=== PATIENT | female | born 1950 | race Caucasian/White ===

== ENCOUNTER 2023-08-09 11:14 | Emergency (ER) | payer MEDICARE ==
[~2023-08-09] VITALS: Ht 177.8 cm; Wt 90.7 kg
[2023-08-09 11:26] VITALS: BP 137/94
[2023-08-09 11:30] VITALS: BP 123/68
[2023-08-09 11:31] VITALS: BP 123/68
[2023-08-09 12:03] LABS: URINE COLOR Brown
[2023-08-09 12:08] LABS: URINE RBC TNTC RBC/hpf (0-5)
[2023-08-09 12:09] LABS: URINE WBC >100 WBC/hpf (0-5)
[2023-08-09 12:13] LABS: URINE BACTERIA MODERATE hpf; URINE SQUAMOUS EPITHELIAL CELL FEW EPI/hpf (0-FEW); URINE YEAST FEW hpf
[2023-08-09] MEDS ORDERED: NITROFURANTN100 M2 PO (12:43)
== END 2023-08-09 13:17 | disposition home or self-care (01) ==
LOC: ED 11:14
PROVIDERS: Emergency Medicine
DX: N39.0 Urinary tract infection, site not specified (principal); B96.20 Unspecified Escherichia coli [E. coli] as the cause of diseases classified elsewhere; G91.9 Hydrocephalus, unspecified; I25.2 Old myocardial infarction; Z98.2 Presence of cerebrospinal fluid drainage device